=== PATIENT | male | born 1960 | race Caucasian/White ===

== ENCOUNTER 2021-02-02 07:33 | Day surgery (SDC) | payer BC ==
[2021-02-01 09:24] VITALS: BMI 28.4
[2021-02-02] MEDS ORDERED: ASPIRIN 325 MG TAB ONE (07:57)
[2021-02-02] MEDS ORDERED: ASPIRIN 81 MG ONE (08:03)
[2021-02-02] MEDS ORDERED: ALPRAZolam 0.25 MG TAB PO PRN (08:06)
[2021-02-02] MEDS ORDERED: SODIUM CHLORIDE 0.9% 1,000 ML in EMPTY BAG 1 BAG IV ONE (08:06)
[2021-02-02] MEDS ORDERED: ALPRAZolam 0.5 MG TAB PO PRN (08:06)
[2021-02-02] MEDS ORDERED: ASPIRIN 325 MG TAB PO PRN (08:06)
[2021-02-02 08:40] LABS: Basophils % (A) 0 %; Eosinophils # (A) 0.3 k/uL (0-0.7); Eosinophils % (A) 4 %; HCT 42.9 % (39.0-53.0); HGB 13.7 gm/dL (13.0-17.5); Lymphocytes # (A) 1.4 k/uL (1.0-4.8); Lymphocytes % (A) 17 %; MCH 28.7 pg (25.0-35.0); MCV 89.7 fL (80.0-100.0); Monocytes # (A) 0.4 k/uL (0-1.0); Monocytes % (A) 5 %; Neutrophils # (A) 5.9 k/uL (1.3-7.7); Neutrophils % (A) 72 %; Platelet Count 287 k/uL (150-450); RBC 4.79 m/uL (4.30-5.90); RDW 13.2 % (11.5-15.5); WBC 8.2 k/uL (3.8-10.6)
[2021-02-02 08:48] LABS: Calcium 9.7 mg/dL (8.4-10.2); Potassium 4.9 mmol/L (3.5-5.1)
[2021-02-02] MEDS: MIDAZOLAM 2 MG/2 ML VIAL IV ONE ×2 (11:03→11:28)
[2021-02-02] MEDS: fentaNYL (PF) 50 MCG/ML 2 ML AMP IV ONE ×2 (11:03→11:41)
[2021-02-02] MEDS ORDERED: LIDOCAINE 1% INJ 10MG/ML (20 ML MDV) SQ ONE (11:05)
[2021-02-02] MEDS ORDERED: HEPARIN SODIUM 1,000 UN/ML (10ML VL) IV ONE (11:08)
[2021-02-02] MEDS ORDERED: niCARdipine Syringe (1,000 mcg/10 mL) INTRAARTER ONE (12:00)
[2021-02-02] MEDS ORDERED: NITROGLYCERIN 1000MCG/10ML SYRINGE INTRAARTER ONE (12:00)
[2021-02-02] MEDS ORDERED: IOPAMIDOL-250 100ML BTL INTRAARTER ONE (12:18)
[2021-02-02] MEDS ORDERED: CLOPIDOGREL 75 MG TAB PO ONE (12:18)
[2021-02-02] MEDS ORDERED: SODIUM CHLORIDE 0.9% 1,000 ML in EMPTY BAG 1 BAG IV SCH (12:30)
[2021-02-02] MEDS ORDERED: hydrALAZINE HCL 20 MG/ML 1 ML VIAL IVP STA ×2 (12:41→14:46)
[2021-02-02] MEDS ORDERED: hydrALAZINE HCL 20 MG/ML 1 ML VIAL ONE ×2 (12:41→14:46)
--- NOTE | 2021-02-02 17:01 | IR ---
Fluoroscopy HISTORY: Pain in right leg 18.9 minutes fluoroscopy time supplied to the referring clinician. 691 intraoperative C-arm images d ocument the procedure. See dictated report from cardiology.
--- NOTE | 2021-02-02 19:09 | PTCA ---
PERCUTANEOUSTRANS CORORONARY ANGIOGRAPHY DATE OF SERVICE: 02/02/2021 PERFORMING PHYSICIAN: Sukumar Marlow MD. PROCEDURE PERFORMED: 1. Atherectomy of the right SFA using the HawkOne device. 2. Successful stenting of the right SFA using 6.0 x 140 and 6.0 x 100 mm Zilver PTX drug-coated stent with an excellent angiographic results. 3. Successful balloon angioplasty of the distal right SFA using drug coated balloon with an excellent angiographic results. 4. Intravascular ultrasound (IVUS) of the right SFA. 5. Right lower extremity angiogram. 6. Left common femoral artery angiogram. 7. Ultrasound-guided access of the left common femoral artery. INDICATION: Right lower extremity intermittent claudication in this gentleman who underwent an angiogram and was found to have occluded right SFA. APPROACH: Left common femoral artery. COMPLICATION: None. LEVEL OF SEDATION: Moderate with sedation length of 68 minutes. PROCEDURE DESCRIPTION: After obtaining informed consent, the patient was brought to cardiac liaison inspection laboratory assistant. The left common femoral artery was cannulated using micropuncture technique under ultrasound guidance, the micropuncture wire passed easily. Then I placed a 70 cm 6- Syriac sheath at the left common femoral artery. I did select the right SFA using an 035 stiff Glidewire with the backup support of 5- Syriac RIM catheter. After that, anticoagulation was initiated using heparin with continuous ACT monitoring. After that I did right lower extremity angiogram which revealed occluded right SFA and right popliteal with 3 vessel runoff below the knee bilaterally. ACID POLYMERIZATION OPERATOR of the right SFA was crossed using a 018 wire with 018 catheter. After that I did intravascular ultrasound which showed that I was in the true lumen in the proximal portion and false lumen in the distal portion. After that I did balloon angioplasty using 5 mm balloon. I decided to stent the proximal and mid segment and that was performed using 6.0 x 140 and 6.0 x 100 mm Zilver PTX drug-coated stent which was postdilated using 5 mm balloon. For the distal right SFA and right popliteal I did balloon angioplasty using 5 mm drug-coated balloon. Final angiogram showed great angiographic results and the procedure was completed without any complication. After that I did exchange my long sheath into short sheath and did selective left common femoral artery angiogram. The procedure was completed without any complication. POSTPROCEDURE MANAGEMENT: 1. Dual anti-platelet therapy. 2. Risk factor modifications. 3. Follow up with the patient. MMODL / IJN: [id number] /
[2021-02-03 04:30] VITALS: TEMP 97.5
[2021-02-03 07:51] LABS: Basophils % (A) 0 %; Eosinophils # (A) 0.3 k/uL (0-0.7); Eosinophils % (A) 3 %; HGB 13.4 gm/dL (13.0-17.5); Lymphocytes # (A) 1.5 k/uL (1.0-4.8); Lymphocytes % (A) 16 %; MCH 29.4 pg (25.0-35.0); MCHC 32.7 g/dL (31.0-37.0); Mean Platelet Volume 6.8; Monocytes # (A) 0.6 k/uL (0-1.0); Monocytes % (A) 7 %; Neutrophils # (A) 6.5 k/uL (1.3-7.7); Neutrophils % (A) 72 %; Platelet Count 274 k/uL (150-450); RBC 4.56 m/uL (4.30-5.90); RDW 12.8 % (11.5-15.5); WBC 9.1 k/uL (3.8-10.6)
[2021-02-03 08:16] LABS: Calcium 9.4 mg/dL (8.4-10.2); Potassium 5.5 mmol/L (3.5-5.1)
[2021-02-03 08:19] VITALS: PULSE 57; RESP 16
[2021-02-03] MEDS ORDERED: ASPIRIN 81 MG PO SCH (09:00)
[2021-02-03] MEDS ORDERED: METOPROLOL SUCCINATE (ER) 25 MG TAB.ER.24H PO SCH (09:00)
[2021-02-03] MEDS ORDERED: NAPROXEN 250 MG TAB PO SCH (09:00)
[2021-02-03] MEDS ORDERED: ATORVASTATIN 40 MG TAB PO SCH (09:00)
[2021-02-03] MEDS ORDERED: ASPIRIN 325 MG TAB PO SCH (09:00)
[2021-02-03] MEDS ORDERED: CLOPIDOGREL 75 MG TAB PO SCH (09:00)
[2021-02-03 12:31] VITALS: BP 122/72
--- NOTE | 2021-02-03 13:45 | P.DS ---
Providers Attending physician: Sukumar Marlow Primary care physician: [facility] Course: This is a 60 year old male who underwent arthrectomy of the right SFA, stenting of the right SFA, and balloon angioplasty of the distal right SFA with Dr. Marlow on 02/02/2021. Patient is doing well postoperatively. Patient has palpable pulses to the right lower extremity. Patient is stable for discharge from a cardiac standpoint. Please see EMR for further hospital course details. Discharge Diagnosis 1. Occluded right SFA, s/p arthrectomy of the right SFA, stenting of the right SFA, and balloon angioplasty of the distal right SFA Nurse practitioner note has been reviewed by physician. Signing provider agrees with the documented findings, assessment, and plan of care. Plan - Discharge Summary Discharge Rx Participant: No New Discharge Prescriptions: New Clopidogrel [Plavix] 75 mg PO DAILY #90 tablet Continue Atorvastatin [Lipitor] 40 mg PO DAILY Aspirin [Adult Low Dose Aspirin EC] 81 mg PO DAILY Metoprolol Succinate (ER) [Toprol XL] 25 mg PO DAILY No Action Naproxen Sodium [Aleve] 220 mg PO DAILY Discharge Medication List Aspirin [Adult Low Dose Aspirin EC] 81 mg PO DAILY 02/01/21 [History] Atorvastatin [Lipitor] 40 mg PO DAILY 02/01/21 [History] Metoprolol Succinate (ER) [Toprol XL] 25 mg PO DAILY 02/01/21 [History] Naproxen Sodium [Aleve] 220 mg PO DAILY 02/01/21 [History] Clopidogrel [Plavix] 75 mg PO DAILY #90 tablet 02/03/21 [Rx] Follow up Appointment(s)/Referral(s): Sukumar Marlow MD [STAFF PHYSICIAN] - 02/08/21 11:45 am Patient Instructions/Handouts: Peripheral Vascular Stent Placement (DC)
== END 2021-02-03 13:48 | disposition home or self-care (01) ==
LOC: CATHCVL 07:33 → 3SCARD 12:12 → CATHCVL 02-03 13:48
PROVIDERS: ATTEND Internal Medicine Interventional Cardiology
DX: I70.213 Atherosclerosis of native arteries of extremities with intermittent claudication, bilateral legs (principal); I70.92 Chronic total occlusion of artery of the extremities; I10 Essential (primary) hypertension; E78.5 Hyperlipidemia, unspecified; Z82.49 Family history of ischemic heart disease and other diseases of the circulatory system; I08.1 Rheumatic disorders of both mitral and tricuspid valves; Z79.899 Other long term (current) drug therapy; Z79.82 Long term (current) use of aspirin; Z88.0 Allergy status to penicillin; Z88.2 Allergy status to sulfonamides; F17.210 Nicotine dependence, cigarettes, uncomplicated; I25.10 Atherosclerotic heart disease of native coronary artery without angina pectoris
CPT/HCPCS: 37227; 37252; 80048 ×2; 85025 ×2; J2250; J0360; J2001; J3010; J1644; Q9966

== ENCOUNTER 2021-02-10 11:05 | Day surgery (SDC) | payer BC ==
[2021-02-09 08:30] VITALS: BMI 27.8
[~2021-02-10 11:05] MED LIST: ASPIRIN 325 MG TAB PO PRN; SODIUM CHLORIDE 0.9% 1,000 ML in EMPTY BAG 1 BAG IV ONE
[2021-02-10] MEDS ORDERED: SODIUM CHLORIDE 0.9% 500 ML 500 ML with niCARdipine 6.25 MG, NITROGLYCERIN-D5W PMX 0.05... IV ONE ×4 (13:30)
[2021-02-10] MEDS ORDERED: MIDAZOLAM 2 MG/2 ML VIAL IVP ONE ×2 (14:18→15:16)
[2021-02-10] MEDS: LIDOCAINE 1% INJ 10MG/ML (20 ML MDV) SQ ONE ×2 (14:24→15:09)
[2021-02-10] MEDS ORDERED: HEPARIN SODIUM 1,000 UN/ML (10ML VL) IVP ONE (14:30)
[2021-02-10] MEDS: fentaNYL (PF) 50 MCG/ML 2 ML AMP IVP ONE ×2 (15:09→16:01)
[2021-02-10] MEDS ORDERED: niCARdipine Syringe (1,000 mcg/10 mL) INTRAARTER ONE (16:29)
[2021-02-10] MEDS ORDERED: NITROGLYCERIN 1000MCG/10ML SYRINGE INTRAARTER ONE (16:29)
[2021-02-10] MEDS ORDERED: IOPAMIDOL-250 100ML BTL INTRAARTER ONE (16:41)
[2021-02-10] MEDS ORDERED: SODIUM CHLORIDE 0.9% 1,000 ML in EMPTY BAG 1 BAG IV SCH (16:45)
[2021-02-10] MEDS ORDERED: CLOPIDOGREL 75 MG TAB PO ONE (16:50)
--- NOTE | 2021-02-10 20:19 | AN ---
ANGIOGRAPHY REPORT DATE OF SERVICE: 02/10/2021 PERFORMING PHYSICIAN: Sukumar Marlow MD. PROCEDURE PERFORMED: 1. Atherectomy of the left SFA and left popliteal using the HawkOne device. 2. Intravascular ultrasound (IVUS) of the left SFA and left popliteal. 3. Successful stenting of the left SFA and left popliteal using 4 Zilver PTX drug- coated stent with an excellent angiographic result. 4. Left lower extremity angiogram. 5. Right common femoral artery angiogram. 6. Selective left anterior tibial artery angiogram. 7. Ultrasound-guided access of the left anterior tibial artery. INDICATION: This is a pleasant 60-year-old gentleman with history of smoking, as well as hypertension and dyslipidemia, who was experiencing bilateral lower extremities, intermittent claudication, and underwent an angiogram and that revealed occluded bilateral SFA. He underwent a LICENSED THERAPIST of the right SFA and was brought today to undergo a LICENSED THERAPIST of the left SFA. APPROACH: Right common femoral artery and left anterior tibial artery. COMPLICATION: None. LEVEL OF SEDATION: Moderate with sedation length of 2 hours and 13 minutes. PROCEDURE DESCRIPTION: After obtaining an informed consent, the patient was brought to the cardiac supervisor labor gang. The right common femoral artery was cannulated using micropuncture technique and a micropuncture wire passed easily, then I placed a 6-Nigerien sheath at the right common femoral artery. I did select the left profunda using 0.035 stiff Glidewire with the backup support of 5- Nigerien rim catheter. After that, I did exchange my short sheath into a 70 cm 6-Nigerien Raabe sheath, which was advanced up and over to the left common femoral artery. At that point, anticoagulation was initiated using heparin and the patient was given a weight-based heparin with continuous ACT monitoring throughout the procedure. After that, finding the proximal cap of the right of the left SFA with multiple wires I was unsuccessful, and because of that I decided to cross the SFA from left from pedal approach. Under ultrasound guidance, I was able to access the left anterior tibial artery. Subsequently I placed the slender catheter a slender sheath 5/6-Nigerien at the left anterior tibial artery with continuous infusion of cocktail including nitroglycerin, as well as heparin, as well as verapamil. After that, using a 018 gold tip Glidewire with the backup support of 018 CXI catheter, I was able to cross the GI ASST and advance the wire all the way to the left femoral artery. Subsequently, I did intravascular ultrasound which showed that part of the popliteal and SFA was in the true lumen, which I decided to atherectomize, and the other part was in the false lumen. I did atherectomy of the left SFA and left popliteal using the HawkOne device with extraction of significant amount of plaque. After that, I did balloon angioplasty of the left popliteal and left SFA which showed inadequate angiographic results and because of that I decided to cover that with a stent. I placed 4 Zilver PTX drug-coated stent. The first stent was 6 x 140 and the second one was 6 x 140 and the 3rd one was 7 x 140 and the 4th one was 7 x 40 mm. I postdilated the 4 stents using 6 mm balloon. The final angiogram showed excellent angiographic results and the procedure was completed without any complication. After that, I did exchange my long sheath into short sheath using 0.035 stiff Glidewire. Then, after that, the procedure was completed without any complication. POSTPROCEDURE MANAGEMENT: 1. Dual anti-platelet therapy. 2. Aggressive cholesterol control. 3. Risk factor modifications. 4. Follow up with the patient. MMODL / IJN: [id number] /
[2021-02-10] MEDS ORDERED: ATROPINE SULFATE 0.1 MG/ML 10ML SYRINGE ONE (21:35)
[2021-02-11 08:28] VITALS: RESP 18; TEMP 98
[2021-02-11] MEDS ORDERED: ATORVASTATIN 40 MG TAB PO SCH (09:00)
[2021-02-11] MEDS ORDERED: ASPIRIN 81 MG PO SCH (09:00)
[2021-02-11] MEDS ORDERED: NAPROXEN 250 MG TAB PO SCH (09:00)
[2021-02-11] MEDS ORDERED: METOPROLOL SUCCINATE (ER) 25 MG TAB.ER.24H PO SCH (09:00)
[2021-02-11] MEDS ORDERED: CLOPIDOGREL 75 MG TAB PO SCH (09:00)
[2021-02-11 10:39] LABS: African American GFR (CKD) >90 (>60 ml/min/1.73 sqM); Anion Gap 5 mmol/L; Blood Urea Nitrogen 21 mg/dL (9-20); Calcium 9.1 mg/dL (8.4-10.2); Carbon Dioxide 28 mmol/L (22-30); Chloride 104 mmol/L (98-107); Glucose 100 mg/dL (74-99); Non-African American GFR(CKD) 82 (>60 ml/min/1.73 sqM); Potassium 4.5 mmol/L (3.5-5.1); Sodium 137 mmol/L (137-145)
[2021-02-11 11:16] LABS: Basophils # (A) 0.1 k/uL (0-0.2); Basophils % (A) 0 %; Eosinophils # (A) 0.2 k/uL (0-0.7); Eosinophils % (A) 2 %; HCT 36.7 % (39.0-53.0); HGB 11.8 gm/dL (13.0-17.5); Lymphocytes # (A) 1.2 k/uL (1.0-4.8); Lymphocytes % (A) 11 %; MCH 29.8 pg (25.0-35.0); MCHC 32.1 g/dL (31.0-37.0); Mean Platelet Volume 7.2; Monocytes # (A) 0.6 k/uL (0-1.0); Monocytes % (A) 5 %; Neutrophils # (A) 8.9 k/uL (1.3-7.7); Neutrophils % (A) 80 %; Platelet Count 383 k/uL (150-450); RBC 3.95 m/uL (4.30-5.90); RDW 12.5 % (11.5-15.5); WBC 11.1 k/uL (3.8-10.6)
[2021-02-11 11:24] VITALS: BP 149/65; PULSE 55
--- NOTE | 2021-02-11 12:48 | IR ---
Fluoroscopy HISTORY: Pain in left leg 45.6 minutes fluoroscopy time supplied to the referring clinician. 385 intraoperative C-arm images d ocument the procedure. See dictated report from cardiology.
--- NOTE | 2021-02-11 19:24 | DS ---
DISCHARGE SUMMARY DATE OF ADMISSION: 02/10/2021 DATE OF DISCHARGE: 02/11/2021 BRIEF HISTORY: This is a very pleasant 60-year-old gentleman who underwent yesterday successful recanalizing, totally occluded left SFA from a pedal approach and right groin approach. The patient was seen this morning. The site is looking good without any bruises and without any hematoma. The patient is going to be discharged home on dual anti-platelet therapy and I will follow up with the patient next week in the office. NAYLA / JEFF: [id number] /
--- NOTE | 2021-02-15 10:29 | CDI ---
Outpatient documentation Clarification Form Date: 02/15/21 CDS>Greens Cutter Name: Peri Peña Phone: If any questions, call Karis Edmonds Ore Crusher at Patient Name: Ramon Alford Account Number; [id number] Admit Date: 02/10/21 Discharge DAte: 02/10/21 ATTENTION: The [facility] coding Staff appreciate your assistance in clarifying documentation, Please respond to the clarification below the line at the bottom and electronically sign. The [facility] Coding Staff will review and follow-up if needed. Please Note: Queries are made part of the Legal Health Record. If you have any question, please contact the Coding Manger. Dear. Dr. Marlow, Please provide clarification as to the cause of the occlusive PAD. PAD/PVD is considered unspecified. Greatest specificity is required for medical necessity support and payer medical necessity requirement. Is the underlying cause of the occlusive PAD one of the following? Arteriosclerotic disease of the arteries Arteritis Necrotic Due to embolism/thrombosis Other - Please specify below Thank you for your Kind Consideration, MTDD
--- NOTE | 2021-02-23 05:51 | CDI ---
Outpatient documentation Clarification Form Date: 02/23/21 CDS>Pastry Sous Chef Name: Peri Peña Phone: If any questions, call Karis Edmonds Plodder Operator at Patient Name: Ramon Alford Account Number; [id number] Admit Date: 02/10/21 Discharge Date: 02/10/21 ATTENTION: The [facility] coding Staff appreciate your assistance in clarifying documentation, Please respond to the clarification below the line at the bottom and electronically sign. The [facility] Coding Staff will review and follow-up if needed. Please Note: Queries are made part of the Legal Health Record. If you have any question, please contact the Coding Manger. Dear. Dr. Marlow, Please provide clarification as to the cause of the occlusive PAD. PAD/PVD is considered unspecified. Greatest specificity is required for medical necessity support and payer medical necessity requirement. Is the underlying cause of the occlusive PAD one of the following? Arteriosclerotic disease of the arteries Arteritis Necrotic Due to embolism/thrombosis Other - Please specify below Thank you for your Kind Consideration, MTDD
== END 2021-02-11 12:51 | disposition home or self-care (01) ==
LOC: CATHCVL 11:05 → 3SCARD 17:19 → CATHCVL 02-11 12:51
PROVIDERS: ATTEND Internal Medicine Interventional Cardiology
DX: I70.212 Atherosclerosis of native arteries of extremities with intermittent claudication, left leg (principal); I25.10 Atherosclerotic heart disease of native coronary artery without angina pectoris; I10 Essential (primary) hypertension; E78.5 Hyperlipidemia, unspecified; Z82.49 Family history of ischemic heart disease and other diseases of the circulatory system; Z88.0 Allergy status to penicillin; Z88.2 Allergy status to sulfonamides; F17.210 Nicotine dependence, cigarettes, uncomplicated; Z79.82 Long term (current) use of aspirin; Z79.899 Other long term (current) drug therapy
CPT/HCPCS: 37227; 37252; 80048; 84132; 85025; C1894 ×3; C1773; C1769 ×6; C1725; C1714; C1753; C1874 ×2; J2250; J2001; J3010; J1644 ×2; Q9966

== ENCOUNTER → 2022-04-18 | Day surgery (SDC) | payer BC ==
[~2022-04-18] MED LIST changes: +ALPRAZolam 0.25 MG TAB PO PRN; +IOPAMIDOL-250 100ML BTL INTRAARTER ONE; +LIDOCAINE 1% INJ 10MG/ML (30 ML VIAL-PF) SQ ONE; +MIDAZOLAM 2 MG/2 ML VIAL IV ONE; +NALOXONE 0.4 MG/ML 1 ML VIAL IVP PRN; +SODIUM CHLORIDE 0.9% 1,000 ML in EMPTY BAG 1 BAG IV SCH
[2022-04-18 07:44] VITALS: RESP 16; TEMP 98.2
[2022-04-18 07:44] LABS: Basophils % (A) 1 %; Eosinophils # (A) 0.3 k/uL (0-0.7); Eosinophils % (A) 4 %; HCT 42.2 % (39.0-53.0); HGB 13.4 gm/dL (13.0-17.5); Lymphocytes # (A) 1.4 k/uL (1.0-4.8); Lymphocytes % (A) 17 %; MCH 28.4 pg (25.0-35.0); MCHC 31.8 g/dL (31.0-37.0); MCV 89.4 fL (80.0-100.0); Mean Platelet Volume 6.9; Monocytes # (A) 0.4 k/uL (0-1.0); Monocytes % (A) 5 %; Neutrophils # (A) 5.8 k/uL (1.3-7.7); Neutrophils % (A) 72 %; Platelet Count 332 k/uL (150-450); RBC 4.72 m/uL (4.30-5.90); RDW 13.1 % (11.5-15.5)
[2022-04-18 07:54] LABS: Calcium 9.2 mg/dL (8.4-10.2); Potassium 4.6 mmol/L (3.5-5.1)
--- NOTE | 2022-04-18 09:58 | P.PCN ---
Date of Procedure: 04/18/22 Operative Findings: AN ABDOMINAL AORTOGRAM AND BILATERAL LOWER EXTREMITIES RUNOFF PERFORMING PHYSICIAN: Sukumar Marlow MD PROCEDURE PERFORMED: 1. An abdominal aortogram 2. Bilateral lower extremities runoff INDICATION: Severe bilateral lower extremities intermittent claudication and this 61-year-old gentleman who continues to smoke and known to have PAD with prior bilateral SFA stenting COMPLICATION: None LEVEL OF SEDATION: Moderate was sedation length of 15 minutes APPROACH: Right common femoral artery PROCEDURE DESCRIPTION: After obtaining informed consent and explaining the procedure benefits, risks, and complications, the patient was brought to the cardiac laborer yard. The right groin was prepped and draped in sterile fashion. The right common femoral artery was cannulated using micropuncture technique, under ultrasound guidance. A micropuncture wire was advanced, and the micropuncture sheath was advanced over the wire, then the micropuncture sheath was exchanged over an 0.35 wire into a 5-Frisian sheath dilator assembly then the wire and dilator were removed and sheath was flushed. We did an abdominal aortogram and bilateral lower extremities runoff using 5- Frisian pigtail catheter using a power injection. The catheter was initially placed at the level of the renal arteries, and it was pulled into above the bifurcation of the aorta into right and left common iliac arteries. The procedure was completed and there was no complications. SELECTIVE PERIPHERAL ANGIOGRAM: The abdominal aorta: Has mild disease only The common iliac arteries: Right common iliac artery appeared to have mild disease only. The left common iliac artery has intermediate lesion The external iliac arteries: In the left external iliac artery appears to have mild disease only. The left external iliac artery appears to have mild disease only as well The internal iliac arteries: Both internal iliacs are patent The common femoral arteries: Right common femoral artery appears to have mild disease only the left common femoral artery has distal plaque by the bifurcation with severe disease involving the ostial profunda. Superficial femoral arteries: Occluded bilateral SFA Popliteal arteries: Occluded bilateral popliteal Below the knees: 3 vessels run off below the knee bilaterally CONCLUSION: Severe disease involving the distal left common femoral artery and ostial profunda Occluded bilateral SFA POSTPROCEDURE MANAGEMENT: The patient might benefit from surgery on the left side/left common femoral artery and ostial profunda
--- NOTE | 2022-04-18 10:30 | IR ---
EXAMINATION TYPE: IR angio abdominal w runoff DATE OF EXAM: 04/18/2022 COMPARISON: NONE HISTORY: Fluoroscopy time. Fluoroscopy was provided to the referring clinician.
[2022-04-18 18:31] VITALS: PULSE 60
[2022-04-18 18:42] VITALS: BP 116/57
== END ==
LOC: CATHCVL 06:52
PROVIDERS: ATTEND Internal Medicine Interventional Cardiology
DX: I70.213 Atherosclerosis of native arteries of extremities with intermittent claudication, bilateral legs (principal); F17.210 Nicotine dependence, cigarettes, uncomplicated; E78.5 Hyperlipidemia, unspecified; I10 Essential (primary) hypertension; Z82.49 Family history of ischemic heart disease and other diseases of the circulatory system; Z88.0 Allergy status to penicillin; Z88.2 Allergy status to sulfonamides; Z79.02 Long term (current) use of antithrombotics/antiplatelets; Z79.899 Other long term (current) drug therapy
CPT/HCPCS: 36200; 75625; 75716; 76937; 80048; 85025; C1769 ×4; C1894; J2250; J2001; Q9966

== ENCOUNTER 2022-06-07 05:57 | Day surgery (SDC) | payer BC ==
[2022-06-02 13:48] VITALS: BMI 31.2
[~2022-06-07 05:57] MED LIST changes: +ALPRAZolam 0.5 MG TAB PO PRN; -ASPIRIN 325 MG TAB PO PRN; +ASPIRIN 325 MG TAB PO STA; +ATORVASTATIN 80 MG TAB PO STA; +HEPARIN SODIUM,PORCINE 10,000 UNIT in SODIUM CHLORIDE 0.9% 1,000 ML IRRIGATION PRN; +HEPARIN SODIUM,PORCINE 2,500 UNIT in SODIUM CHLORIDE 0.9% 250 ML IRRIGATION PRN; -IOPAMIDOL-250 100ML BTL INTRAARTER ONE; -LIDOCAINE 1% INJ 10MG/ML (30 ML VIAL-PF) SQ ONE; -MIDAZOLAM 2 MG/2 ML VIAL IV ONE; -NALOXONE 0.4 MG/ML 1 ML VIAL IVP PRN; +NITROGLYCERIN SL TABS 0.4 MG TAB SUBLINGUAL PRN; -SODIUM CHLORIDE 0.9% 1,000 ML in EMPTY BAG 1 BAG IV ONE
[2022-06-07] MEDS ORDERED: SODIUM CHLORIDE 0.9% 1,000 ML IV ONE (06:13)
[2022-06-07 06:37] VITALS: RESP 16; TEMP 98.9
[2022-06-07 06:41] LABS: Basophils % (A) 1 %; Eosinophils # (A) 0.2 k/uL (0-0.7); Eosinophils % (A) 3 %; HCT 42.5 % (39.0-53.0); HGB 14.1 gm/dL (13.0-17.5); Lymphocytes # (A) 1.7 k/uL (1.0-4.8); Lymphocytes % (A) 23 %; MCH 28.9 pg (25.0-35.0); MCHC 33.3 g/dL (31.0-37.0); MCV 86.7 fL (80.0-100.0); Mean Platelet Volume 7.4; Monocytes # (A) 0.4 k/uL (0-1.0); Monocytes % (A) 5 %; Neutrophils # (A) 4.6 k/uL (1.3-7.7); Neutrophils % (A) 66 %; Platelet Count 293 k/uL (150-450); RDW 12.9 % (11.5-15.5); WBC 7.1 k/uL (3.8-10.6)
[2022-06-07 06:53] LABS: Calcium 9.3 mg/dL (8.4-10.2)
[2022-06-07] MEDS ORDERED: VERAPAMIL 2.5 MG/ML 2 ML AMP ONE (07:13)
[2022-06-07] MEDS ORDERED: HEPARIN SODIUM 1,000 UN/ML (10ML VL) ONE (07:26)
[2022-06-07] MEDS: MIDAZOLAM 2 MG/2 ML VIAL IV ONE ×2 (07:38→07:42)
[2022-06-07] MEDS ORDERED: LIDOCAINE 1% INJ 10MG/ML (30 ML VIAL-PF) SQ ONE (07:44)
[2022-06-07] MEDS ORDERED: VERAPAMIL SYRINGE (5 MG/10 ML) INTRAARTER ONE (07:53)
[2022-06-07] MEDS ORDERED: HEPARIN SODIUM 1,000 UN/ML (10ML VL) IV ONE (07:54)
[2022-06-07] MEDS ORDERED: IOPAMIDOL-370 125ML BTL INJ ONE (08:05)
[2022-06-07] MEDS ORDERED: RX INFO: IV CONTRAST WAS GIVEN 1 EACH MISC MISCELLANE PRN (08:13)
[2022-06-07] MEDS ORDERED: SODIUM CHLORIDE 0.9% 1,000 ML IV SCH (08:15)
--- NOTE | 2022-06-07 08:18 | P.PCN ---
Date of Procedure: 06/07/22 Operative Findings: CARDIAC CATHETERIZATION PERFORMING PHYSICIAN: Sukumar Marlow MD, RPVI PROCEDURE PERFORMED: 1. Selective right and left coronary angiogram 2. Left heart catheterization INDICATION: This is a 62-year-old gentleman with lower extremities peripheral tear disease was scheduled to undergo left femoral endarterectomy with postoperative overall limited functional capacity underwent myocardial perfusion imaging stress test and that showed an ischemia inferiorly. In the light of that heart catheterization was advised COMPLICATION: None APPROACH: Right radial artery LEVEL OF SEDATION: Moderate with a sedation length of 22 minutes PROCEDURE DESCRIPTION: After obtaining an informed consent, the patient was brought to cardiac catheter builder. Local anesthesia was performed using lidocaine subcutaneously. The right radial artery was cannulated using Seldinger technique, the guidewire passed easily, following that we advanced a 5-Croatian sheath dilator assembly, the wire and dilator were removed and sheath was flushed. Following that, 2 mg of verapamil along with 5000 unit heparin were given. Selective right and left coronary angiogram using a 6-Croatian JR4 and JL 3.5 catheters. Following that we did left heart catheterization using 6-Croatian pigtail catheter. The procedure was completed there was no complication. SELECTIVE CORONARY ANGIOGRAM: The right coronary artery: Large caliber vessel and a dominant vessel. The RCA is chronically occluded in the midportion and fills by collateral from the left coronary system Left main: Has mild disease only. Bifurcates into LCx and LAD The left circumflex: Which caliber vessel nondominant vessel. The LCx appears to have mild disease only. It gives rises into the first obtuse marginal branch which were present ramus intermedius and appeared to have mild disease only and second OM branch which appeared to have mild disease only as well. The left anterior descending artery: Large caliber vessel. The LAD has mild diffuse disease only. It is calcified as well. HEMODYNAMICS: The LVEDP was 8 mmHg was no significant gradient across aortic valve CONCLUSION: 1. 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 Mild disease involving the left coronary system POSTPROCEDURE MANAGEMENT: Maximize medical treatment and the patient can proceed the vascular surgery
[2022-06-07 16:33] VITALS: BP 135/64; PULSE 54
== END 2022-06-07 12:10 | disposition home or self-care (01) ==
LOC: CATHCVL 05:57
PROVIDERS: ATTEND Internal Medicine Interventional Cardiology
DX: I25.10 Atherosclerotic heart disease of native coronary artery without angina pectoris (principal); E78.5 Hyperlipidemia, unspecified; I10 Essential (primary) hypertension; F17.210 Nicotine dependence, cigarettes, uncomplicated; I25.82 Chronic total occlusion of coronary artery
CPT/HCPCS: 93458; 80048; 85025; C1769 ×2; C1894; J2250; J2001; J1644; Q9967

== ENCOUNTER 2022-06-10 11:30 | Inpatient (IN) | payer BC ==
[2022-06-09 13:33] VITALS: BMI 30.8
[~2022-06-10 11:30] MED LIST changes: -ALPRAZolam 0.25 MG TAB PO PRN; -ALPRAZolam 0.5 MG TAB PO PRN; -ASPIRIN 325 MG TAB PO STA; -ATORVASTATIN 80 MG TAB PO STA; +DEXAMETHASONE SOD PHOSPHATE 4 MG/ML 1 ML VIAL IV ONE; -HEPARIN SODIUM,PORCINE 10,000 UNIT in SODIUM CHLORIDE 0.9% 1,000 ML IRRIGATION PRN; -HEPARIN SODIUM,PORCINE 2,500 UNIT in SODIUM CHLORIDE 0.9% 250 ML IRRIGATION PRN; +HYDROmorphone 0.5 MG/0.5 ML SYRINGE IVP PRN; +MIDAZOLAM 2 MG/2 ML VIAL IV PRN; -NITROGLYCERIN SL TABS 0.4 MG TAB SUBLINGUAL PRN; +ONDANSETRON 4 MG/2 ML VIAL IVP ONE; +SCOPOLAMINE 1 MG/72 HR PATCH TRANSDERM ONE; -SODIUM CHLORIDE 0.9% 1,000 ML in EMPTY BAG 1 BAG IV SCH
[2022-06-10] MEDS: LACTATED RINGERS 1,000 ML IV SCH (12:19)
[2022-06-10] MEDS ORDERED: MIDAZOLAM 2 MG/2 ML VIAL ONE (14:00)
[2022-06-10] MEDS ORDERED: NEOSTIGMINE 1 MG/ML 10 ML VIAL ONE (14:00)
[2022-06-10] MEDS ORDERED: PROPOFOL 10 MG/ML 20 ML VIAL IV ONE (14:00)
[2022-06-10] MEDS ORDERED: PHENYLEPHRINE-0.9% NACL SYG 1,000 MCG/10 ML SYRINGE ONE (14:00)
[2022-06-10] MEDS ORDERED: LIDOCAINE 2% INJ 20 MG/ML (2 ML VIAL) ONE (14:00)
[2022-06-10] MEDS ORDERED: HEPARIN SODIUM,PORCINE 10,000 UNIT/ML 1 ML VIAL ONE (14:00)
[2022-06-10] MEDS ORDERED: HYDROmorphone (PF) 1 MG/ML ONE (14:00)
[2022-06-10] MEDS ORDERED: ROCURONIUM 10 MG/ML (5 ML VIAL) IV ONE (14:00)
[2022-06-10] MEDS ORDERED: GLYCOPYRROLATE 0.2 MG/ML 2 ML VIAL ONE (14:00)
[2022-06-10] MEDS ORDERED: PROTAMINE SULFATE 10 MG/ML 5 ML VIAL IV ONE (14:00)
[2022-06-10] MEDS ORDERED: SUCCINYLCHOLINE CHLORIDE 200 MG/10 ML VIAL IV ONE (14:00)
[2022-06-10] MEDS ORDERED: fentaNYL (PF) 50 MCG/ML 2 ML AMP ONE (14:00)
[2022-06-10] MEDS ORDERED: HEPARIN SODIUM,PORCINE 10,000 UNIT in SODIUM CHLORIDE 0.9% 1,000 ML IRRIGATION ONE (14:39)
[2022-06-10] MEDS ORDERED: ceFAZolin 4 GM in SODIUM CHLORIDE 0.9% 1,000 ML IRRIGATION ONE (14:39)
[2022-06-10] MEDS ORDERED: LACTATED RINGERS 1,000 ML IV ONE (15:08)
--- NOTE | 2022-06-10 17:17 | P.OP ---
Date of Procedure: 06/10/22 Preoperative Diagnosis: Lower extremity claudication with rest pain Tate 4 Left common femoral, profunda and SFA occlusion Postoperative Diagnosis: Same Procedure(s) Performed: Left common femoral, profunda endarterectomy with patch angioplasty Anesthesia: YASMEEN Surgeon: Brigido Martino Estimated Blood Loss (ml): 50 Pathology: none sent Condition: stable Disposition: PACU Indications for Procedure: 62 year old male with history of lower extremity rest pain and severe cla udication with previous SFA stenting presented to the office due to occlusion of the left common femoral, profunda and SFA. He presents today for elective femoral endarterectomy and patch angioplasty. Operative Findings: Dense plaque, occlusion of the common femoral, profunda and superficial femoral artery. Stent in the SFA noted to be occluded. Description of Procedure: After written and informed consent was obtained the patient all risks, benefits and complications were described patient was brought to the operative suite and laid in a supine position. The area of the left groin was prepped and draped in usual sterile fashion. Timeout was performed in normal fashion antibiotics were administered prior to incision. An oblique incision was then created overlying the femoral artery with a 10 blade scalpel and dissection was carried down through subcutaneous tissues to the common femoral sheath. The sheath was incised and the common femoral artery was dissected free in a circumferential manner proximally to just underneath the inguinal ligament and distally to the SFA and profunda takeoff. There was dense plaque noted throughout the entirety of the vessel. Once dissection was complete inserted frontal manner each vessel was controlled with vessel loops. Patient was administered heparin and followed with ACTs for levels greater than 200. Proximal distal control was then obtained with vascular clamps. Arteriotomy was created with 11 blade scalpel and extended with Pott Sutton scissors to the profundus femoris artery. Dense plaque was noted throughout with significant occlusion, plaque and thrombosed stent in the superficial femoral artery. The plaque was then removed from the common femoral proximally and extended distally to the SFA as well as the profundus femoris artery which an eversion technique was performed to remove the plaque. Good brisk blood flow was noted from the profundus femoris artery which was heparinized. All free debris was then removed and patch angioplasty was then performed with a bovine pericardial 0.8 x 8 cm patch and 6-0 Prolene suture in a running fashion. Once completed control was released and the patch was de- aired. Backbleeding was brisk from the profundus femoris and inflow demonstrated good pulsatility. Last sutures were then secured demonstrating good pulse throughout the common femoral into the profundus femoris artery. Multiphasic signal was noted with Doppler in the profundus femoris and common femoral. Hemostasis was ensured with Gelfoam and thrombin. Once hemostatic the area was copiously irrigated with a box solution. The incision was then closed in a multilayer fashion. Skin was closed with 4-0 Monocryl suture and Prevena dressing was placed. Patient tolerated the procedure well had good capillary refill at the conclusion of the procedure.
[2022-06-10] MEDS ORDERED: MORPHINE SULFATE 2 MG/ML SYRINGE IVP PRN (17:19)
[2022-06-10] MEDS ORDERED: HYDROcodone/APAP 5-325MG 1 EACH TAB PO PRN (17:19)
[2022-06-10] MEDS ORDERED: NON FORMULARY DRUG (Aspirin [Adult Low Dose Aspirin Ec] 81 MG Tablet) PO SCH (17:30)
[2022-06-11 01:31] VITALS: RESP 16
[2022-06-11] MEDS: LACTATED RINGERS 1,000 ML IV SCH (06:12)
[2022-06-11] MEDS ORDERED: METOPROLOL SUCCINATE (ER) 25 MG TAB.ER.24H PO SCH (09:00)
[2022-06-11] MEDS ORDERED: ATORVASTATIN 40 MG TAB PO SCH (09:00)
[2022-06-11] MEDS ORDERED: CLOPIDOGREL 75 MG TAB PO SCH (09:00)
--- NOTE | 2022-06-11 10:43 | P.PN ---
Subjective Progress Note Date: 06/11/22 Principal diagnosis: left lower extremity femoral occlusion s/p endarterectomy Patient seen and examined. Doing well, pain improved since surgery. Denies any fevers, chills, chest pain or shortness of breath. Objective - Vital Signs Vital signs: Vital Signs Temp 98.2 F 06/11/22 08:34 Pulse 58 L 06/11/22 08:35 Resp 16 06/11/22 08:35 BP 129/60 06/11/22 08:34 Pulse Ox 100 06/11/22 08:34 FiO2 Intake & Output 06/10/22 06/11/22 06/11/22 18:59 06:59 18:59 Intake Total 1353 240 180 Output Total 150 350 Balance 1203 -110 180 Weight 98.7 kg Intake: IV 1353 Oral 240 180 Output: Urine 100 350 Estimated Blood Loss 50 Other: Voiding Method Indwelling Catheter Indwelling Catheter - Exam left femoral incision site with Prevena vac in place. No hematoma or bleeding noted. Palpable femoral pulse. Good capillary refill. DP signal improved- multiphasic. - Constitutional General appearance: Present: average body habitus, cooperative - EENT Eyes: Present: PERRLA - Respiratory Respiratory: bilateral: CTA - Cardiovascular Rhythm: regular - Neurologic Neurologic: Present: CNII-XII intact. Absent: focal deficits - Musculoskeletal Musculoskeletal: Present: gait normal, generalized weakness, strength equal bilaterally - Psychiatric Psychiatric: Present: A&O x's 3, appropriate affect, intact judgment & insight Assessment and Plan Assessment: Chronic left femoral artery occlusion Claudication Nye 4 POD 1 left femoral endarterectomy with patch angioplasty Plan: Bailon removed. Patient ambulated in hallway without pain. Ok for discharge after cleared by cardiology. Will need to continue aspirin, plavix and statin upon discharge. Ok to remove Prevena Vac in 5 days. Follow up in 2 weeks in office.
[2022-06-11 11:33] VITALS: BP 140/69; PULSE 53; TEMP 97.6
--- NOTE | 2022-06-11 15:34 | P.CRDCN ---
History of Present Illness Consult date: 06/11/22 History of present illness: Patient has a known history of coronary artery disease and peripheral vascular disease. We have been consult that for his known history of CAD. Patient underwent left lower extremity femoral occlusion s/p endarterectomy with patch angioma plasty. Patient is on Plavix. Patient was up walking around the hallway doing well. Plan is for patient to be discharged today in follow-up outpatient. Review of Systems REVIEW OF SYSTEMS At the time of my exam: CONSTITUTIONAL: Denies fever or chills. EYES: Negative for vision changes ENT: Negative for hearing loss CARDIOVASCULAR: Denies chest pain, shortness of breath, diaphoresis, orthopnea, PND or palpitations. VASCULAR: Denies edema RESPIRATORY: Denies cough. GASTROINTESTINAL: Denies abdominal pain, diarrhea, constipation, nausea or vomiting. MUSCULOSKELETAL: Denies myalgias. NEUROLOGIC: Denies numbness, tingling, headache or weakness. ENDOCRINE: Denies fatigue, weight change, polydipsia or polyurina. GENITOURINARY: Denies burning, hematuria or urgency with micturation. HEMATOLOGIC: Denies history of anemia or bleeding. DERMATOLOGY: Denies rash or skin sores PSYCH: Negative for depression or hallucinations. Past Medical History Past Medical History: Deep Vein Thrombosis (DVT), Hyperlipidemia, Hypertension, Sleep Apnea/CPAP/BIPAP, Vascular Disorder Additional Past Medical History / Comment(s): Leg pain. "Hx Sleep Apnea, hasn't had to use CPAP in yrs". irregular heart beat, swelling of douglas feet/ankles, bottom of feet are numb, History of Any Multi-Drug Resistant Organisms: None Reported Past Surgical History: Bariatric Surgery, Breast Surgery, Heart Catheterization Additional Past Surgical History / Comment(s): Lap band, left breast lumpectomy- benign, 02/02/21 stents to douglas legs (total 5 stents).06/07/22 heart cath and angiogram Past Anesthesia/Blood Transfusion Reactions: Previous Problems w/ Anesthesia Additional Past Anesthesia/Blood Transfusion Reaction / Comment(s): "he had a abnormal heart beat during breast surgery" Smoking Status: Current every day smoker - Past Family History Sister(s) Family Medical History: Cancer Additional Family Medical History / Comment(s): Uterine cancer. Another sister also had cancer, unknown type. Medications and Allergies Home Medications Medication Instructions Recorded Confirmed Type Atorvastatin [Lipitor] 40 mg PO DAILY 02/01/21 06/10/22 History Metoprolol Succinate (ER) [Toprol 25 mg PO DAILY 02/01/21 06/10/22 History XL] Clopidogrel [Plavix] 75 mg PO DAILY #90 tablet 02/03/21 06/09/22 Rx Naproxen Sodium [Aleve] 220 mg PO DAILY PRN 06/02/22 06/09/22 History Aspirin [Adult Low Dose Aspirin EC] 324 mg PO ONCE 06/09/22 06/09/22 History Allergies Allergy/AdvReac Type Severity Reaction Status Date / Time Penicillins Allergy Rash/Hives Verified 06/10/22 12:06 Sulfa (Sulfonamide Allergy Rash/Hives Verified 06/10/22 12:06 Antibiotics) Physical Exam Vitals: Vital Signs Temp Pulse Resp BP Pulse Ox 06/11/22 11:32 97.6 F 53 L 16 140/69 99 06/11/22 08:35 58 L 16 06/11/22 08:34 98.2 F 58 L 16 129/60 100 06/11/22 03:54 98.5 F 56 L 16 105/70 95 06/11/22 00:00 98 F 55 L 16 126/73 97 06/10/22 20:00 97.8 F 60 18 140/82 98 06/10/22 17:27 50 L 16 155/72 96 06/10/22 17:12 57 L 16 154/68 96 06/10/22 16:57 53 L 16 161/62 100 06/10/22 16:42 98.6 F 54 L 14 178/79 100 Intake and Output 06/11/22 06/11/22 06/11/22 06:59 14:59 22:59 Intake Total 360 Output Total 350 825 Balance -350 -465 Intake: Oral 360 Output: Urine 350 825 Uretheral ([place]) 350 Other: Voiding Method Indwelling Catheter Indwelling Catheter General: The patient is awake and alert, in no distress, and does not appear acutely ill. Skin: Skin is warm and dry and no rashes or lesions are noted. Eye: Pupils are equal, round and reactive to light, extra-ocular movements are intact; there is normal conjunctiva bilaterally. Ears, nose, mouth and throat: There are moist mucous membranes and no oral lesions. Neck: The neck is supple, there is no tenderness or JVD. Cardiovascular: There is irregular regular rate and rhythm. No murmur, rub or gallop is appreciated. Respiratory: Lungs are clear to auscultation, respirations are non-labored, breath sounds are equal. Gastrointestinal: Soft, non-distended, non-tender abdomen without masses or organomegaly noted. There is no rebound or guarding present. Bowel sounds are unremarkable. Back: There is no tenderness to palpation in the midline. There is no obvious deformity. Musculoskeletal: Normal ROM, no tenderness, There is no pedal edema. There is no calf tenderness or swelling. Extremities: Mild bilateral pitting edema Vascular: Femoral pulse is normal. Posterior tibial pulses are normal .Dorsalis pedis is palpable. Neurological: CN II-XII intact. There are no obvious motor or sensory deficits. Speech is normal. 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 Josette Khan, nurse practitioner, acting as scribe for signing physician.
== END 2022-06-11 15:24 | disposition home or self-care (01) | DRG 254 ==
LOC: 2ORMAIN 11:30 → 3SCARD 17:00
PROVIDERS: ADMIT Surgery; ATTEND Surgery
PROC: 04UL0JZ Supplement Left Femoral Artery with Synthetic Substitute, Open Approach (ICD-10-PCS; 2022-06-10)
PROC: 04CL0ZZ Extirpation of Matter from Left Femoral Artery, Open Approach (ICD-10-PCS; principal; 2022-06-10 13:15)
DX: I70.222 Atherosclerosis of native arteries of extremities with rest pain, left leg (principal); I25.10 Atherosclerotic heart disease of native coronary artery without angina pectoris; I10 Essential (primary) hypertension; Z20.822 Contact with and (suspected) exposure to COVID-19; I70.201 Unspecified atherosclerosis of native arteries of extremities, right leg; E78.5 Hyperlipidemia, unspecified; F17.210 Nicotine dependence, cigarettes, uncomplicated; G62.9 Polyneuropathy, unspecified; G47.30 Sleep apnea, unspecified; Z79.02 Long term (current) use of antithrombotics/antiplatelets; Z79.82 Long term (current) use of aspirin; Z79.899 Other long term (current) drug therapy; Z88.2 Allergy status to sulfonamides; Z88.0 Allergy status to penicillin; Z86.718 Personal history of other venous thrombosis and embolism
CPT/HCPCS: 86850; 86900; 86901

== ENCOUNTER 2022-07-14 07:34 | Day surgery (SDC) | payer BC ==
[2022-07-13 09:02] VITALS: BMI 31.1
[~2022-07-14 07:34] MED LIST changes: +ALPRAZolam 0.25 MG TAB PO PRN; +ALPRAZolam 0.5 MG TAB PO PRN; +ASPIRIN 325 MG TAB PO PRN; -DEXAMETHASONE SOD PHOSPHATE 4 MG/ML 1 ML VIAL IV ONE; +HEPARIN SODIUM,PORCINE 10,000 UNIT in SODIUM CHLORIDE 0.9% 1,000 ML IRRIGATION PRN; +HEPARIN SODIUM,PORCINE 2,500 UNIT in SODIUM CHLORIDE 0.9% 250 ML IRRIGATION PRN; -HYDROmorphone 0.5 MG/0.5 ML SYRINGE IVP PRN; -MIDAZOLAM 2 MG/2 ML VIAL IV PRN; -ONDANSETRON 4 MG/2 ML VIAL IVP ONE; -SCOPOLAMINE 1 MG/72 HR PATCH TRANSDERM ONE; +SODIUM CHLORIDE 0.9% 1,000 ML in EMPTY BAG 1 BAG IV ONE; +ZOLPIDEM 5 MG TAB PO PRN
[2022-07-14 08:13] LABS: Basophils # (A) 0.1 k/uL (0-0.2); Basophils % (A) 1 %; Eosinophils # (A) 0.2 k/uL (0-0.7); Eosinophils % (A) 3 %; HCT 41.6 % (39.0-53.0); HGB 13.6 gm/dL (13.0-17.5); Lymphocytes # (A) 1.4 k/uL (1.0-4.8); Lymphocytes % (A) 19 %; MCH 28.6 pg (25.0-35.0); MCHC 32.8 g/dL (31.0-37.0); MCV 87.2 fL (80.0-100.0); Mean Platelet Volume 7.3; Monocytes # (A) 0.5 k/uL (0-1.0); Monocytes % (A) 6 %; Neutrophils % (A) 70 %; Platelet Count 303 k/uL (150-450); RBC 4.77 m/uL (4.30-5.90); RDW 12.7 % (11.5-15.5); WBC 7.2 k/uL (3.8-10.6)
[2022-07-14] MEDS ORDERED: niCARdipine 25 MG/10 ML VIAL ONE (09:04)
[2022-07-14] MEDS ORDERED: MIDAZOLAM 2 MG/2 ML VIAL IV ONE ×2 (09:14→09:34)
[2022-07-14 09:19] LABS: Calcium 9.2 mg/dL (8.4-10.2); Potassium 4.1 mmol/L (3.5-5.1)
[2022-07-14] MEDS ORDERED: HEPARIN SODIUM 1,000 UN/ML (10ML VL) IV ONE (09:38)
[2022-07-14] MEDS: HEPARIN SODIUM 1,000 UN/ML (10ML VL) ONE ×3 (09:52→11:05)
[2022-07-14] MEDS: niCARdipine Syringe (1,000 mcg/10 mL) INTRAARTER ONE ×2 (10:37→11:16)
[2022-07-14] MEDS: NITROGLYCERIN 1000MCG/10ML SYRINGE INTRAARTER ONE ×2 (10:38→11:16)
[2022-07-14] MEDS ORDERED: IOPAMIDOL-250 100ML BTL INTRAARTER ONE ×2 (11:18→11:19)
[2022-07-14] MEDS ORDERED: CLOPIDOGREL 75 MG TAB PO ONE (11:20)
[2022-07-14] MEDS ORDERED: CLOPIDOGREL 75 MG TAB ONE (11:22)
[2022-07-14] MEDS ORDERED: NALOXONE 0.4 MG/ML 1 ML VIAL IVP PRN (11:49)
--- NOTE | 2022-07-14 11:58 | P.PCN ---
Date of Procedure: 07/14/22 Operative Findings: PERCUTANEOUS PERIPHERAL INTERVENTION Performing physician Sukumar Marlow M.D. Procedure performed #1 successful stenting of the left popliteal using 6.0 x 40 mm Zilver PTX drug- coated stent #2 successful stenting of the left SFA using 8.0 x 40 mm Zilver PTX drug-coated stent #3 intravascular ultrasound of the left popliteal and left SFA #4 left lower extremity angiogram #5 right common femoral artery angiogram #6 ultrasound guided access of the right common femoral artery Indication Critical limb ischemia with a resting pain for this 62-year-old gentleman who is known to have PAD who underwent recently left femoral endarterectomy and known to have chronic total occlusion of the left SFA and left popliteal Approach Right common femoral artery Complications None Level of sedation Moderate with a sedation time of 125 minute minutes Procedure description After obtaining an informed consent the patient was brought to the cardiac laborer cutting tool. The right common femoral artery was cannulated using micro[employer] ue under ultrasound guidance, the micropuncture wire passed easily then I placed a 6-[place] 70 cm sheath at the right common femoral artery. Subsequently I did selective left profunda using 035 stiff Glidewire with a backup support of 5- [place] rim catheter. After that I did advance the rim catheter over the Glidewire then I advanced the sheath over the wire and the rim catheter all the way to the left common femoral artery. Anticoagulation was initiated using heparin with continuous ACT monitoring. After that I did left lower extremity angiogram which revealed occluded left SFA and occluded left popliteal with 3 vessels run off below the knee on the left side. I was able to cross the chronic total occlusion of the left SFA and left popliteal. I did inject through the catheter to prove that I was in the true lumen. Subsequently I did do balloon angioplasty of the left popliteal and left SFA which was in-stent occlusion using 4 mm balloon. Intravascular ultrasound was performed before the balloon angioplasty to prove that I was in the true lumen. After that I did balloon angioplasty using 5 mm balloon. The following angiogram showed good angiographic results for the whole SFA and proximal left popliteal but the ostial SFA and the distal popliteal has a tight lesion need to be stented. For the proximal left SFA I did deploy 8.0 x 40 mm Zilver PTX and 4 the distal popliteal I deployed a 6.0 x 40 mm Zilver PTX. Regarding the SFA I did balloon angioplasty using a drug-coated balloon. The final angiogram showed good angiographic results with a good flow below the knee. The procedure was performed with no complication. After that I did exchange my long sheath into short sheath is also 35 wire before I did selective right common femoral artery angiogram. Postprocedure management #1 dual antiplatelet therapy #2 aggressive cholesterol control #3 risk factors modification #4 follow-up with the patient
[2022-07-14] MEDS ORDERED: SODIUM CHLORIDE 0.9% 1,000 ML in EMPTY BAG 1 BAG IV SCH (12:00)
--- NOTE | 2022-07-14 12:13 | IR ---
EXAMINATION TYPE: IR port captain femoral popliteal DATE OF EXAM: 07/14/2022 COMPARISON: NONE HISTORY: Fluoroscopy time. Fluoroscopy was provided to the referring clinician.
[2022-07-14] MEDS ORDERED: hydrALAZINE HCL 20 MG/ML 1 ML VIAL IVP STA ×2 (12:17→14:25)
[2022-07-14] MEDS ORDERED: ATROPINE SULFATE 0.1 MG/ML 10ML SYRINGE ONE (15:43)
[2022-07-14] MEDS: APIXABAN 2.5 MG TABLET PO SCH (19:49)
[2022-07-15 07:54] VITALS: BP 136/69; PULSE 68; RESP 18; TEMP 97.8
[2022-07-15] MEDS: APIXABAN 2.5 MG TABLET PO SCH (08:37)
[2022-07-15] MEDS ORDERED: ASPIRIN 81 MG PO SCH (09:00)
[2022-07-15] MEDS ORDERED: CLOPIDOGREL 75 MG TAB PO SCH (09:00)
[2022-07-15] MEDS ORDERED: METOPROLOL SUCCINATE (ER) 25 MG TAB.ER.24H PO SCH (09:00)
[2022-07-15] MEDS ORDERED: ATORVASTATIN 40 MG TAB PO SCH (09:00)
--- NOTE | 2022-07-15 10:21 | P.DS ---
Providers Attending physician: Sukumar Marlow Primary care physician: Thad [facility] Course: The patient is a 62-year-old gentleman who underwent yesterday successful recanalizing chronically occluded left SFA from right groin approach. He was seen this morning. I was able to feel dorsalis pedis and posterior tibial pulses appeared to be diminished. The right groin is soft nontender and with no gross his BP stable and asymptomatic. He is going to be discharged home on triple therapy. I'll follow-up with the patient in a week. Plan - Discharge Summary Discharge Rx Participant: No New Discharge Prescriptions: New Apixaban [Eliquis] 2.5 mg PO BID #180 tab Apixaban [Eliquis] 2.5 mg PO BID #100 tab Continue Atorvastatin [Lipitor] 40 mg PO DAILY Clopidogrel [Plavix] 75 mg PO DAILY #90 tablet Aspirin [Adult Low Dose Aspirin EC] 81 mg PO DAILY Metoprolol Succinate (ER) [Toprol XL] 25 mg PO DAILY Discharge Medication List Atorvastatin [Lipitor] 40 mg PO DAILY 02/01/21 [History] Metoprolol Succinate (ER) [Toprol XL] 25 mg PO DAILY 02/01/21 [History] Clopidogrel [Plavix] 75 mg PO DAILY #90 tablet 02/03/21 [Rx] Aspirin [Adult Low Dose Aspirin EC] 81 mg PO DAILY 06/09/22 [History] Apixaban [Eliquis] 2.5 mg PO BID #100 tab 07/15/22 [Rx] Apixaban [Eliquis] 2.5 mg PO BID #180 tab 07/15/22 [Rx] Follow up Appointment(s)/Referral(s): Sukumar Marlow MD [STAFF PHYSICIAN] - 07/20/22 3:30 pm (Appt is @ main office on e.)
== END 2022-07-15 10:50 | disposition home or self-care (01) ==
LOC: CATHCVL 07:34 → 6NMEDSUR 12:42 → CATHCVL 07-15 10:50
PROVIDERS: ATTEND Internal Medicine Interventional Cardiology
DX: I73.9 Peripheral vascular disease, unspecified (principal); Z04.9 Encounter for examination and observation for unspecified reason; Z79.01 Long term (current) use of anticoagulants; Z79.82 Long term (current) use of aspirin; Z79.899 Other long term (current) drug therapy
CPT/HCPCS: 37226; 37252; 80048; 82565; 85025; C1894 ×2; C1769 ×6; C1725 ×2; C1753; C2623 ×2; C1874; J2250; J0360; J1644; Q9966

== ENCOUNTER 2022-07-27 09:00 | Day surgery (SDC) | payer BC ==
[~2022-07-27 09:00] MED LIST changes: -ALPRAZolam 0.5 MG TAB PO PRN; -HEPARIN SODIUM,PORCINE 10,000 UNIT in SODIUM CHLORIDE 0.9% 1,000 ML IRRIGATION PRN; -HEPARIN SODIUM,PORCINE 2,500 UNIT in SODIUM CHLORIDE 0.9% 250 ML IRRIGATION PRN; -ZOLPIDEM 5 MG TAB PO PRN
[2022-07-27 09:34] LABS: Basophils % (A) 1 %; Eosinophils # (A) 0.3 k/uL (0-0.7); Eosinophils % (A) 4 %; HCT 39.9 % (39.0-53.0); HGB 13.3 gm/dL (13.0-17.5); Lymphocytes # (A) 1.3 k/uL (1.0-4.8); Lymphocytes % (A) 16 %; MCH 29.2 pg (25.0-35.0); MCHC 33.2 g/dL (31.0-37.0); MCV 87.7 fL (80.0-100.0); Mean Platelet Volume 6.8; Monocytes # (A) 0.4 k/uL (0-1.0); Monocytes % (A) 5 %; Neutrophils # (A) 5.9 k/uL (1.3-7.7); Neutrophils % (A) 74 %; Platelet Count 363 k/uL (150-450); RBC 4.55 m/uL (4.30-5.90); RDW 12.9 % (11.5-15.5)
[2022-07-27 09:52] LABS: Calcium 9.2 mg/dL (8.4-10.2); Potassium 4.5 mmol/L (3.5-5.1)
[2022-07-27] MEDS ORDERED: niCARdipine 25 MG/10 ML VIAL ONE (10:05)
[2022-07-27] MEDS ORDERED: fentaNYL (PF) 50 MCG/ML 2 ML AMP ONE (10:24)
[2022-07-27] MEDS ORDERED: MIDAZOLAM 2 MG/2 ML VIAL IVP ONE ×2 (10:27→10:57)
[2022-07-27] MEDS: fentaNYL (PF) 50 MCG/ML 2 ML AMP IVP ONE ×2 (10:27→12:11)
[2022-07-27] MEDS ORDERED: LIDOCAINE 1% INJ 10MG/ML (30 ML VIAL-PF) SQ ONE (10:28)
[2022-07-27] MEDS ORDERED: HEPARIN SODIUM 1,000 UN/ML (10ML VL) ONE (10:33)
[2022-07-27] MEDS: HEPARIN SODIUM 1,000 UN/ML (10ML VL) IVP ONE ×3 (10:34→12:09)
[2022-07-27] MEDS ORDERED: NITROGLYCERIN 1000MCG/10ML SYRINGE INTRAARTER ONE (12:36)
[2022-07-27] MEDS ORDERED: niCARdipine Syringe (1,000 mcg/10 mL) INTRAARTER ONE (12:36)
[2022-07-27] MEDS ORDERED: NALOXONE 0.4 MG/ML 1 ML VIAL IVP PRN (12:48)
--- NOTE | 2022-07-27 12:56 | P.PCN ---
Date of Procedure: 07/27/22 Operative Findings: PERCUTANEOUS PERIPHERAL INTERVENTION Performing physician Sukumar Marlow M.D. Procedure performed #1 An atherectomy of the right popliteal artery using the CSI device #2 Successful stenting of the right popliteal using 6.0 x 80 mm Zilver PTX drug- coated stent with an excellent angiographic results #3 Successful balloon angioplasty of the right SFA using a drug-coated balloon with an excellent angiographic results #4 Intravascular ultrasound of the right popliteal and right SFA #5 Right lower extremity angiogram #6 Left common femoral artery angiogram. Ultrasound-guided access of the left common femoral artery Indication CLI of the right foot in this 62-year-old gentleman who is known to have PAD and CAD and history of smoking as well as hypertension and dyslipidemia Approach Left common femoral artery Complications None Level of sedation Moderate with a sedation time of 145 minutes Procedure description After obtaining an informed consent the patient was brought to the cardiac component lab tech. The left common femoral artery was cannulated using micropuncture technique under ultrasound guidance, the micropuncture wire passed easily then I placed 6-Norwegian sheath 70 cm the left common femoral artery. At that point anticoagulation was initiated using heparin with continuous ACT monitoring. Subsequently I did selective the right SFA using 035 stiff Glidewire with a backup support of 5-Norwegian rim catheter. After that I did advanced the sheath over the wire and the catheter to the right common femoral artery. Right lower extremities angiogram was performed and revealed 3 vessels run off below the knee with de deann occlusion of the right popliteal and in-stent occlusion of the right SFA. Successful crossing of the chronic total occlusion of the right SFA and right popliteal was performed using 018 wire and 035 wire. After that I did do an intravascular ultrasound which showed that I was in the true lumen all the way. At that point I decided to do atherectomy of the right popliteal artery which is nondistended so I did that using the CSI device. Subsequently I did balloon angioplasty of the right popliteal using 5 mm chocolate balloon and 4 the right SFA using initially 5 mm balloon and subsequently 6 mm balloon. The angiogram showed that the right popliteal and right SFA angiographically looks good except for the very proximal segment of the right popliteal looks diseased with inadequate angiographic results and for that reason I decided to stent that segment. So I stented the very proximal segment of the right popliteal using 6.0 x 80 mm stent and that was Zilver PTX drug-coated stent which was postdilated using 5 mm balloon. Then 4 the right popliteal distal to the stented segment and 4 the right SFA proximal to the stented segment I did alone angioplasty using drug-coated balloon with an excellent angiographic results. By the end of completion angiogram was performed and showed 3 vessels run off with a good flow and possible right dorsalis pedis artery. Subsequently I did exchange my long sheath into short sheath using 035 wire before I did selective left common femoral artery angiogram. Postprocedure management #1 dual antiplatelet therapy #2 aggressive cholesterol control #3 risk factors modification #4 follow-up with the patient
[2022-07-27] MEDS ORDERED: IOPAMIDOL-250 100ML BTL INTRAARTER ONE (13:00)
[2022-07-27] MEDS ORDERED: SODIUM CHLORIDE 0.9% 1,000 ML in EMPTY BAG 1 BAG IV SCH (13:00)
[2022-07-27] MEDS ORDERED: HYDROmorphone 1 MG/ML 1 ML SYRINGE IVP STA (13:46)
--- NOTE | 2022-07-28 08:07 | P.DS ---
Providers Attending physician: Sukumar Marlow Primary care physician: Thad [facility]ries [facility] Course: The patient is a pleasant 62-year-old gentleman who underwent yesterday successful RECOOPERER of the right SFA and right popliteal with a good angiographic results and without complication from left groin approach. He was seen and evaluated this morning be disease. He is stable from a cardiovascular standpoint of view. He is asymptomatic. The patient is going to be discharged home on triple and I'll follow-up with the patient next week in the office Plan - Discharge Summary Discharge Rx Participant: Yes New Discharge Prescriptions: Continue Atorvastatin [Lipitor] 40 mg PO DAILY Clopidogrel [Plavix] 75 mg PO DAILY #90 tablet Aspirin [Adult Low Dose Aspirin EC] 81 mg PO DAILY Apixaban [Eliquis] 2.5 mg PO BID #180 tab Ibuprofen [Motrin Ib] 200 mg PO DAILY Metoprolol Succinate (ER) [Toprol XL] 25 mg PO DAILY Discharge Medication List Atorvastatin [Lipitor] 40 mg PO DAILY 02/01/21 [History] Metoprolol Succinate (ER) [Toprol XL] 25 mg PO DAILY 02/01/21 [History] Clopidogrel [Plavix] 75 mg PO DAILY #90 tablet 02/03/21 [Rx] Aspirin [Adult Low Dose Aspirin EC] 81 mg PO DAILY 06/09/22 [History] Apixaban [Eliquis] 2.5 mg PO BID #180 tab 07/15/22 [Rx] Ibuprofen [Motrin Ib] 200 mg PO DAILY 07/26/22 [History] Follow up Appointment(s)/Referral(s): Sukumar Marlow MD [STAFF PHYSICIAN] - 1 Week (APPOINTMENT MADE ON July @ 4:45PM AT THE MAIN OFFICE) Patient Instructions/Handouts: Peripheral Artery Disease (ED), Moderate Sedation (DC), Peripheral Vascular Stent Placement (DC)
[2022-07-28 08:13] VITALS: BP 114/72; PULSE 64; RESP 18; TEMP 98.3
[2022-07-28] MEDS ORDERED: IBUPROFEN 200 MG TAB PO SCH (09:00)
[2022-07-28] MEDS ORDERED: METOPROLOL SUCCINATE (ER) 25 MG TAB.ER.24H PO SCH (09:00)
[2022-07-28] MEDS ORDERED: ASPIRIN 81 MG PO SCH (09:00)
[2022-07-28] MEDS ORDERED: CLOPIDOGREL 75 MG TAB PO SCH (09:00)
[2022-07-28] MEDS ORDERED: ATORVASTATIN 40 MG TAB PO SCH (09:00)
--- NOTE | 2022-07-28 11:54 | IR ---
EXAMINATION TYPE: IR stent intravas non coronary DATE OF EXAM: 07/27/2022 COMPARISON: NONE HISTORY: Fluoroscopy time. Fluoroscopy was provided to the referring clinician.
== END 2022-07-28 09:00 | disposition home or self-care (01) ==
LOC: CATHCVL 09:00 → 6NMEDSUR 12:41 → CATHCVL 07-28 09:00
PROVIDERS: ATTEND Internal Medicine Interventional Cardiology
DX: I73.9 Peripheral vascular disease, unspecified (principal); I25.10 Atherosclerotic heart disease of native coronary artery without angina pectoris; I10 Essential (primary) hypertension; E78.5 Hyperlipidemia, unspecified; Z87.891 Personal history of nicotine dependence; Z79.02 Long term (current) use of antithrombotics/antiplatelets; Z79.82 Long term (current) use of aspirin; Z79.01 Long term (current) use of anticoagulants; Z79.899 Other long term (current) drug therapy; Z79.1 Long term (current) use of non-steroidal anti-inflammatories (NSAID)
CPT/HCPCS: 37227; 37252; 80048; 82565; 85025; C1894 ×2; C1769 ×8; C1714; C1725 ×3; C1753; C2623 ×2; C1874; J2250; J2001; J3010; J1644; J1170; Q9966